=== PATIENT | female | born 1995 | race African-American/Black ===

== ENCOUNTER 2016-10-12 15:02 | Emergency (ER) | payer OTHER ==
--- NOTE | ~2016-10-12 | CT2 ---
[facility] A Service of [facility] RADIOLOGY TEXT RESULTS PATIENT: JOANA FRIED LOCATION: [facility] : [birth year] UNIT #: [id number] AGE: [address]: Claudy Davila DO SEX: F ORDER DR: [id number] [facility] [address] [place], [place] [address] [id number] E MR#: [id number] Acc #: [id number] NAME: JOANA FRIED : 1995 SEX: F STUDY DATE/TIME: 10/12/2016 16:12 UNIT: [facility] ROOM: STUDY DESCRIPTION: CT Abd and Pelv W Cont Attending Physician: Claudy Davila D.O. Ordering Physician: Claudy Davila D.O. Primary Care Physician: Roberto Tamayo M.D. MEDICAL IMAGING REPORT This report is preliminary unless electronic signature is present EXAM CT abdomen and pelvis with contrast. HISTORY Lower abdominal and pelvic pain x1 day. COMPARISON CT abdomen and pelvis, 11/27/2013. TECHNIQUE Axial images were performed through the abdomen and pelvis following IV and oral contrast. Multiplanar reconstructed images were reviewed at a workstation. This CT exam was performed with one or more of the following radiation dose reduction techniques: automatic exposure control, adjustment of mA and/or kV according to patient size, and iterative reconstruction. FINDINGS ABDOMEN: Lung bases unremarkable. Liver, spleen appear normal. The gallbladder is contracted. Pancreas, kidneys, and adrenal glands unremarkable. No free air or free fluid. Visualized GI tract to include the appendix is normal. Retroperitoneum unremarkable. PELVIS: There is a 2.9 cm low-attenuation structure in the left adnexa, most likely represents the left ovary and ovarian cyst. This is most likely physiologic. Grade 1 spondylolisthesis L5 on S1 with bilateral L5 pars defects. IMPRESSION 1. No definite acute intraabdominal or intrapelvic pathology identified. In particular, the appendix is normal and no evidence of pyelonephritis. [facility] A Service of [facility] RADIOLOGY TEXT RESULTS PATIENT: JOANA FRIED LOCATION: [facility] : [birth year] UNIT #: [id number] AGE: [address]: Claudy Davila DO SEX: F ORDER DR: 2. Grade 1 spondylolisthesis, L5 on S1. Bilateral L5 pars defects. This is not changed from 11/27/2013 CT scan. 3. 2.9 cm low-attenuation lesion, left adnexa, most compatible with the left ovary and ovarian cyst, probably physiologic. Dictated by... Colton Frias M.D. THIS IS AN ELECTRONICALLY VERIFIED REPORT Colton Frias M.D. at 10/13/2016 2:02 PM Sophia TD: 10/12/2016 18:11 JOB #: [id number] MEDICAL IMAGING REPORT Page 1 of 1 COPY
[2016-10-12 14:32] LABS: BASOPHIL# 0.1 X10e3 (0-0.3); BASOPHIL% 0.7 % (0-2.5); DIFF IND NO; EOSINOPHIL# 0.1 X10e3 (0-0.7); EOSINOPHIL% 1.1 % (0.0-7.0); HEMATOCRIT 36.5 % (35.0-45.0); HEMOGLOBIN 11.7 gm/dL (12.0-16.0); LYMPHOCYTE# 1.9 X10e3 (1.0-3.5); MEAN CELL VOLUME 83.9 FL (83-96); MEAN CORPUSCULAR HGB CONC 32.2 g/dL (30-36); MONOCYTE# 0.5 X10e3 (0-1.0); MONOCYTE% 4.8 % (3.0-12.0); NEUTROPHIL# 7.5 X10e3 (1.5-7.1); NEUTROPHIL% 74.4 % (40-75); PLATELET COUNT 237 X10e3 (140-420); RED BLOOD COUNT 4.35 X10e (3.90-5.30); RED CELL DISTRIBUTION WIDTH 14.5 % (11.0-15.5)
[2016-10-12 14:39] LABS: URINE SOURCE CLEAN CATCH
[2016-10-12 14:44] LABS: URINE APPEARANCE CLEAR; URINE BILIRUBIN NEG (NEG); URINE BLOOD NEG (NEG); URINE COLOR YELLOW; URINE GLUCOSE NEG (NEG); URINE KETONE NEG (NEG); URINE LEUKOCYTE ESTERASE 2+ (NEG); URINE NITRATE NEG (NEG); URINE PROTEIN NEG (NEG)
[2016-10-12 14:46] LABS: CULTURE INDICATED? YES; URBCS1 AUWI 0-2 /[HPF] (0-2); URINE BACTERIA AUWI NEG (NEGATIVE); URINE SQUAMOUS EPITHELIAL CELL OCC /[HPF]
[2016-10-12 14:58] LABS: ALBUMIN SERUM 4.1 g/dL (3.5-5.0); BILIRUBIN, DIRECT 0.1 mg/dL (0.0-0.2); BILIRUBIN,INDIRECT 0.3 mg/dL (0.0-0.9); BILIRUBIN,TOTAL 0.4 mg/dL (0.2-2.0); BUN/CREATININE RATIO 18.33; CALCIUM SERUM 9.1 mg/dL (8.4-10.2); CREATININE SERUM 0.6 mg/dL (0.6-1.4); POTASSIUM 3.6 mmol/L (3.5-5.1); PROTEIN TOTAL SERUM 7.1 g/dL (6.0-8.3)
[2016-10-14 21:48] LABS: CHLAMYDIA TRACH Detected (Not Detected); N GONOR Detected (Not Detected)
== END 2016-10-12 17:55 | disposition home or self-care (01) ==
LOC: CED 15:02
PROVIDERS: Emergency Medicine
DX: N39.0 Urinary tract infection, site not specified (principal); N76.0 Acute vaginitis
CPT/HCPCS: 36415; 74177; 80048; 80076; 81003; 82150; 83690; 84703; 85025; 87086; 87491; 87591; 87808; 87905; 96374; 99284; J1885; Q9967

== ENCOUNTER 2016-10-20 12:46 | Emergency (ER) | payer OTHER | END 2016-10-20 12:50 | disposition home or self-care (01) | LOC: CFTX 12:46 | DX: A54.01 Gonococcal cystitis and urethritis, unspecified (principal) | CPT/HCPCS: 96372; 99283; J0696 ==